=== PATIENT | female | born 1995 | race African-American/Black ===

== ENCOUNTER 2017-06-25 02:59 | Day surgery (SDC) | payer OTHER ==
--- NOTE | 2017-06-25 08:36 | PRG ---
DATE OF SERVICE: 06/25/2017 PRIMARY OB: Dr. Prabhakar Blum CHIEF COMPLAINT: Vaginal spotting and labial swelling. HISTORY OF PRESENT ILLNESS: The patient is a 21-year-old G1, P0 female with an intrauterine pregnanc y at 31 weeks and 4 days, who was transferred from [facility] with complaints of vaginal bleeding a nd abdominal pain. The patient reported that she has been having for the last week, intermittent spo tting and pain and came into the emergency room for evaluation. She was transferred here given the l ack of ability to evaluate OB patients. Upon arrival, the patient reports that she has again been sp otting intermittently, not currently bleeding. She also reports she has had some labial swelling for the last several days. She denies any leaking of fluid, any persistent bleeding. She denies any ut erine contractions of severity. She denies any abdominal pain. PAST MEDICAL HISTORY: Noncontributory. PAST SURGICAL HISTORY: She has had a right lumpectomy and a right ACL repair. OBSTETRIC HISTORY: This is her first . SOCIAL HISTORY: Denies drug, alcohol or tobacco use. ALLERGIES: No known drug allergies. MEDICATIONS: vitamins. OB LABS: Unavailable. REVIEW OF SYSTEMS: The patient reports occasional headaches. Denies fever, chest pain, shortness of breath. Reports some nausea, but no vomiting. Denies diarrhea, constipation, new rash, hip or knee problems. She denies any vaginal bleeding at this time or unusual discharge, no urinary urgency or frequency. PHYSICAL EXAMINATION: VITAL SIGNS: Blood pressure 120/78, heart rate of 98, respiratory rate of 20, temperature 98.4. GENERAL: She appears to be in no acute distress. She is alert and oriented, and cooperative and ple asant to interact with. HEENT: Normocephalic, atraumatic. LUNGS: Clear to auscultation bilaterally. HEART: Regular rate and rhythm. ABDOMEN: Soft and gravid. EXTREMITIES: Nontender, nonedematous. PELVIC: Vulva and labia are notably swollen, though not of severity. There are no visible lesions, no ulcerations, although she does have a discharge that is present in between her labia and the intro itus. VAGINAL EXAM: She has significant discharge, no bleeding. Cervix on digital exam is closed. heart tracing performed for vaginal bleeding. Fetus is noted to be baseline in the 140s with m oderate long-term variability, positive accelerations, no decelerations. Tocometer shows some possib le irritability. FACT CHECKER-3 and GC chlamydia were collected and results are unavailable at this time. ASSESSMENT AND PLAN: The patient is a 21-year-old G1, P0 female with an intrauterine at 31 weeks and 4 days, who presented for intermittent spotting and pain who at this time is without sympt oms. However, she does have swollen labia and a significant discharge that is consistent with a yeas t infection, although I do not have the FACT CHECKER-3 or GC chlamydia back. I have instructed the patient to start using [id number] Monistat vaginally every night for the next 7 days. The patient and fam leslie members have expressed understanding. I have also asked them to call back later this morning whe n the FACT CHECKER-3 results are available for counseling. She has instructions to follow up with her primary OB, Dr. Prabhakar Blum as scheduled.
[2017-06-26 01:13] LABS: Chlamydia by PCR Not Detected (NotDetected); GC by PCR Not Detected (NotDetected)
--- NOTE | 2017-06-26 17:32 | PDOC.EVN ---
Event Note - Event Note Event Note: 06/26/17 @1730 lab check post discharge: GC/Chl negative.
== END 2017-06-25 06:00 | disposition home or self-care (01) ==
LOC: L&D/OP 02:59
PROVIDERS: ATTEND Family Medicine
DX: O26.853 Spotting complicating pregnancy, third trimester (principal); O99.89 Other specified diseases and conditions complicating pregnancy, childbirth and the puerperium; N76.89 Other specified inflammation of vagina and vulva; Z91.018 Allergy to other foods; Z79.899 Other long term (current) drug therapy; Z3A.31 31 weeks gestation of pregnancy; Z98.890 Other specified postprocedural states
CPT/HCPCS: 87480; 87491; 87510; 87591; 87660; 99285